=== PATIENT | female | born 1970 | race Caucasian/White ===

== ENCOUNTER 2019-10-09 22:27 | Emergency (ER) | payer MEDICAID ==
[2019-10-09] MEDS ORDERED: XYLOCAINE 1% HCL 20 ML MDV IJ ONE (22:28)
[2019-10-09] MEDS ORDERED: Phenergan 25 MG INJ IM ONE (22:46)
--- NOTE | 2019-10-09 22:53 | ERPHSYRPT ---
- History of Present Illness Time Seen by Provider: 10/09/19 22:41 Source: patient Exam Limitations: no limitations Patient Subjective Stated Complaint: pt to ER by EMS with complaints of overdose on K2. pt states she felt nauseous. EMS gave 4 mg IM zofran enroute. Triage Nursing Assessment: pt A&Ox4. ambulatory. no distress. skin pwd. Physician History: Pt c/o left sided headache today; smoked K-2 about 1 hour ago and had nausea and generalized weakness; denies chest pain, shortness of air, abdominal pain, fever, chills, suicidal ideation. Allergies/Adverse Reactions: meperidine [From Demerol] Allergy (Verified 10/09/19 22:49) Penicillins Allergy (Verified 10/09/19 22:49) Home Medications: Cariprazine HCl [Vraylar] 1.5 mg PO DAILY 10/09/19 [History] Hx Tetanus, Diphtheria Vaccination/Date Given: No Hx Influenza Vaccination/Date Given: No Immunizations Up to Date: Yes Travel Risk - International Travel Have you traveled outside of the country in past 3 weeks: No - Coronavirus Screening Are you exhibiting any of the following symptoms?: No Close contact with a COVID-19 positive Pt in past 14-21 Days: No - Review of Systems Constitutional: No Fever, No Chills Ears, Nose, & Throat: No Throat Pain Respiratory: No Dyspnea Cardiac: No Chest Pain Abdominal/Gastrointestinal: Nausea, No Abdominal Pain, No Vomiting, No Diarrhea Neurological: Headache, Other (generalized weakness ) All Other Systems: Reviewed and Negative - Past Medical History Pertinent Past Medical History: Yes Other Medical History: hep C - Past Surgical History Female Surgical History: Tubal Ligation Other Surgical History: cysts removed from thyroid and ovaries - Social History Smoking Status: Current every day smoker Exposure to second hand smoke: Yes Drug Use: methamphetamines, other Patient Lives Alone: No - Female History Hx Now: (unknown) - Nursing Vital Signs Nursing Vital Signs: Initial Vital Signs Temperature 98 F 10/09/19 22:38 Pulse Rate 78 10/09/19 22:38 Respiratory Rate 16 10/09/19 22:38 Blood Pressure 94/70 10/09/19 22:38 O2 Sat by Pulse Oximetry 100 10/09/19 22:38 Pain Scale Pain Intensity 0 - Physical Exam General Appearance: alert Eye Exam: PERRL/EOMI Ears, Nose, Throat Exam: pharynx normal Neck Exam: normal inspection Respiratory Exam: lungs clear Cardiovascular Exam: normal heart sounds Gastrointestinal/Abdominal Exam: soft, normal bowel sounds Back Exam: normal range of motion Extremity Exam: normal range of motion Mental Status Exam: alert, oriented x 3, 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 Exam: PERRL Motor/Sensory Exam: no motor deficit, no sensory deficit Skin Exam: No cyanosis SpO2 Interpretation: normal SpO2: 100 O2 Delivery: Room Air - Course Nursing assessment & vital signs reviewed: Yes - CT Exams Head CT Interpretation: Tele-radiologist Report (no acute intracranial abnormality.) Ordered Tests: Active Orders 24 hr Category Date Time Status HEAD WITHOUT CONTRAST [CT] Stat Exams 10/09/19 22:47 Taken BMP Stat Lab 10/09/19 23:16 Completed CBC W DIFF Stat Lab 10/09/19 23:16 Completed CULTURE,URINE Stat Lab 10/10/19 02:26 Received HIV 1/2 SOURCE ONLY Stat Lab 10/10/19 00:37 Completed MAGNESIUM Stat Lab 10/09/19 23:16 Completed UA W/RFX UR CULTURE Stat Lab 10/10/19 02:26 Completed Urine Triage Profile Stat Lab 10/10/19 02:26 Received Medication Summary Discontinued Medications Generic Name Dose Route Start Last Admin Trade Name Freq PRN Reason Stop Dose Admin Ceftriaxone Sodium 1,000 mg 10/10/19 02:54 Rocephin 1000 Mg Inj IM 10/10/19 02:55 STAT ONE Promethazine HCl 25 mg 10/09/19 22:46 10/09/19 23:26 Phenergan 25 Mg Inj IM 10/09/19 22:47 25 mg STAT ONE Administration Promethazine HCl Confirm 10/09/19 23:08 Phenergan 25 Mg Inj Administered 10/09/19 23:09 Dose 25 mg .ROUTE .STK-MED ONE Promethazine HCl Confirm 10/09/19 23:25 Phenergan 25 Mg Inj Administered 10/09/19 23:26 Dose 25 mg .ROUTE .STK-MED ONE Lab/Rad Data: Laboratory Result Diagrams 10/09/19 23:16 10/09/19 23:16 Laboratory Results 10/10/19 10/10/19 10/09/19 Range/Units 02:26 00:37 23:16 WBC (4.0-10.5) K/mm3 RBC (4.1-5.4) M/mm3 Hgb (12.0-16.0) gm/dl Hct (35-47) % MCV (78-100) fl MCH (26-32) pg MCHC (32-36) g/dl RDW (11.5-14.0) % Plt Count (150-450) K/mm3 MPV (7.5-11.0) fl Gran % (36.0-66.0) % Eos # (Auto) (0-0.5) Absolute Lymphs (auto) (1.0-4.6) Absolute Monos (auto) (0.0-1.3) Lymphocytes % (24.0-44.0) % Monocytes % (0.0-12.0) % Eosinophils % (0.00-5.0) % Basophils % (0.0-0.4) % Absolute Granulocytes (1.4-6.9) Basophils # (0-0.4) Sodium (137-145) mmol/L Potassium (3.5-5.1) mmol/L Chloride (98-107) mmol/L Carbon Dioxide (22-30) mmol/L Anion Gap (5-15) MEQ/L BUN (7-17) mg/dL Creatinine (0.52-1.04) mg/dL Estimated GFR ML/MIN Glucose (74-106) mg/dL Calcium (8.4-10.2) mg/dL Magnesium 1.9 (1.6-2.3) mg/dL Urine Color ARIELA (YELLOW) Urine Appearance CLOUDY (CLEAR) Urine pH 5.0 (5-6) Ur Specific [place] 1.029 (1.005-1.025) Urine Protein 100 (Negative) Urine Ketones NEGATIVE (NEGATIVE) Urine Blood NEGATIVE (0-5) Pierre/ul Urine Nitrite POSITIVE (NEGATIVE) Urine Bilirubin SMALL (NEGATIVE) Urine Urobilinogen 4 (0-1) mg/dL Ur Leukocyte Esterase SMALL (NEGATIVE) Urine WBC (Auto) 26-50 (0-5) /HPF Urine RBC (Auto) 11-15 (0-2) /HPF U Hyaline Cast (Auto) 26-50 (0-2) /LPF U Epithel Cells (Auto) RARE (FEW) /HPF Urine Bacteria (Auto) FEW (NEGATIVE) /HPF Calcium Oxalate Crystal 11-25 (NEGATIVE) /HPF Urine Mucus (Auto) MANY (NEGATIVE) /HPF Urine Culture Reflexed YES (NO) Urine Glucose NEGATIVE (NEGATIVE) mg/dL HIV-1 Specimen Source PRESUMPTIVE NEGATIVE (NEGATIVE) 10/09/19 10/09/19 Range/Units 23:16 23:16 WBC 9.3 (4.0-10.5) K/mm3 RBC 4.13 (4.1-5.4) M/mm3 Hgb 12.9 (12.0-16.0) gm/dl Hct 38.5 (35-47) % MCV 93.2 (78-100) fl MCH 31.2 (26-32) pg MCHC 33.5 (32-36) g/dl RDW 12.3 (11.5-14.0) % Plt Count 266 (150-450) K/mm3 MPV 9.5 (7.5-11.0) fl Gran % 58.4 (36.0-66.0) % Eos # (Auto) 0.16 (0-0.5) Absolute Lymphs (auto) 3.11 (1.0-4.6) Absolute Monos (auto) 0.55 (0.0-1.3) Lymphocytes % 33.5 (24.0-44.0) % Monocytes % 5.9 (0.0-12.0) % Eosinophils % 1.7 (0.00-5.0) % Basophils % 0.5 (0.0-0.4) % Absolute Granulocytes 5.42 (1.4-6.9) Basophils # 0.05 (0-0.4) Sodium 135 L (137-145) mmol/L Potassium 3.6 (3.5-5.1) mmol/L Chloride 102 (98-107) mmol/L Carbon Dioxide 27 (22-30) mmol/L Anion Gap 9.9 (5-15) MEQ/L BUN 15 (7-17) mg/dL Creatinine 0.69 (0.52-1.04) mg/dL Estimated GFR > 60.0 ML/MIN Glucose 162 H (74-106) mg/dL Calcium 9.7 (8.4-10.2) mg/dL Magnesium (1.6-2.3) mg/dL Urine Color (YELLOW) Urine Appearance (CLEAR) Urine pH (5-6) Ur Specific [place] (1.005-1.025) Urine Protein (Negative) Urine Ketones (NEGATIVE) Urine Blood (0-5) Pierre/ul Urine Nitrite (NEGATIVE) Urine Bilirubin (NEGATIVE) Urine Urobilinogen (0-1) mg/dL Ur Leukocyte Esterase (NEGATIVE) Urine WBC (Auto) (0-5) /HPF Urine RBC (Auto) (0-2) /HPF U Hyaline Cast (Auto) (0-2) /LPF U Epithel Cells (Auto) (FEW) /HPF Urine Bacteria (Auto) (NEGATIVE) /HPF Calcium Oxalate Crystal (NEGATIVE) /HPF Urine Mucus (Auto) (NEGATIVE) /HPF Urine Culture Reflexed (NO) Urine Glucose (NEGATIVE) mg/dL HIV-1 Specimen Source (NEGATIVE) - Progress Progress: unchanged Counseled pt/family regarding: lab results, diagnosis, rad results - Departure Departure Disposition: Home Clinical Impression: UTI (urinary tract infection), Headache, Generalized weakness, Nausea Condition: Stable Critical Care Time: No Referrals: LEESA BUTLER MD [Primary Care Provider] - Instructions: Urinary Tract Infection, Adult (DC) Additional Instructions: Follow up with private doctor tomorrow. Forms: Work/School Release Form Prescriptions: Ondansetron ODT 4 MG [Zofran Odt 4 mg] 4 mg PO Q6H PRN PRN #10 tab.rapdis PRN Reason: Nausea/Vomiting Nitrofurantoin Monohyd/M-Cryst [Macrobid 100 mg Capsule] 100 mg PO BID #14 capsule
[2019-10-09] MEDS ORDERED: Phenergan 25 MG INJ ONE ×2 (23:08→23:25)
[2019-10-09 23:21] LABS: Absolute Neutrophil Ct (ANC) 5.42 (1.4-6.9); BASOPHIL % 0.5 % (0.0-0.4); Basophil (Absolute #) 0.05 (0-0.4); Eosinophil % 1.7 % (0.00-5.0); Eosinophil (Absolute #) 0.16 (0-0.5); Hematocrit 38.5 % (35-47); Hemoglobin 12.9 gm/dl (12.0-16.0); Lymphocyte (Absolute #) 3.11 (1.0-4.6); Lymphocytes % 33.5 % (24.0-44.0); Mean Cell Volume 93.2 fl (78-100); Mean Corpuscular Hemoglobin 31.2 pg (26-32); Mean Corpuscular Hgb Concent. 33.5 g/dl (32-36); Mean Platelet Volume 9.5 fl (7.5-11.0); Monocyte (Absolute #) 0.55 (0.0-1.3); Monocytes % 5.9 % (0.0-12.0); Neutrophil % 58.4 % (36.0-66.0); Platelet Count 266 K/mm3 (150-450); Red Blood Count 4.13 M/mm3 (4.1-5.4); Red Cell Distribution Width 12.3 % (11.5-14.0); White Blood Count 9.3 K/mm3 (4.0-10.5)
[2019-10-09 23:37] LABS: ANION GAP 9.9 MEQ/L (5-15); BLOOD UREA NITROGEN 15 mg/dL (7-17); CHLORIDE 102 mmol/L (98-107); Calcium 9.7 mg/dL (8.4-10.2); Carbon Dioxide 27 mmol/L (22-30); Creatinine 1 0.69 mg/dL (0.52-1.04); EST GLOMERULAR FILTRATION RATE > 60.0 ML/MIN; Glucose 162 mg/dL (74-106); Potassium 3.6 mmol/L (3.5-5.1); SODIUM 135 mmol/L (137-145)
[2019-10-10 02:42] LABS: Appearance CLOUDY (CLEAR); Bacteria FEW /HPF (NEGATIVE); Bilirubin SMALL (NEGATIVE); Blood NEGATIVE Ery/ul (0-5); Epithelial Cells RARE /HPF (FEW); Glucose NEGATIVE (NEGATIVE); Hyaline Casts 26-50 /LPF (0-2); Ketones NEGATIVE (NEGATIVE); Leukocyte Esterase SMALL (NEGATIVE); Mucus MANY /HPF (NEGATIVE); Nitrite POSITIVE (NEGATIVE); Protein,Urine Dip 100 (Negative); Specific Gravity 1.029 (1.005-1.025); Urobilinogen 4 mg/dL (0-1); WBC 26-50 /HPF (0-5)
[2019-10-10] MEDS ORDERED: Rocephin 1000 MG INJ IM ONE (02:54)
[2019-10-10] MEDS ORDERED: Rocephin 1000 MG INJ ONE (03:04)
[2019-10-10 03:34] LABS: Amphetamine,Urine POSITIVE (NEGATIVE); Barbiturate,Urine NEGATIVE (NEGATIVE); Benzodiazepine,Urine NEGATIVE (NEGATIVE); Cocaine,Urine NEGATIVE (NEGATIVE); Methadone,Urine NEGATIVE (NEGATIVE); Opiate,Urine NEGATIVE (NEGATIVE); PCP,Urine NEGATIVE (NEGATIVE); THC,Urine POSITIVE (NEGATIVE)
[2019-10-10 04:45] VITALS: BP 103/66; PULSE 81; O2SAT 99
--- NOTE | 2019-10-10 09:18 | XRAY ---
Indication: Overdose. Multiple contiguous axial images obtained through the head without contrast. Comparison: None Normal appearing brain parenchyma, ventricles, and bony calvarium. Visualized paranasal sinuses and mastoid air cells are clear. Impression: Normal CT head without contrast exam. Comment: Preliminary interpretation was made by [facility]. No critical discrepancy.
[2019-10-11 08:11] LABS: Hepatitis C Antibody by EIA Weak Reactive (Non Reactive)
[2019-10-11 08:12] LABS: Hepatitis B Sur Ag Screen Non Reactive (Non Reactive)
== END 2019-10-10 04:10 | disposition home or self-care (01) ==
LOC: ED 22:27
DX: N39.0 Urinary tract infection, site not specified (principal); R51 Headache; R53.1 Weakness
CPT/HCPCS: 36415; 70450; 80048; 80307; 81001; 83735; 85025; 86689; 86701; 86702; 86803; 87077; 87086; 87186; 87340; 87389; 96372; 99284; J0696; J2550